=== PATIENT | female | born 1965 | race Caucasian/White ===

== ENCOUNTER 2023-03-03 11:35 | Outpatient (OUT) | payer OTHER, SELFPAY ==
--- NOTE | 2023-03-03 11:45 | MM_ITS ---
Patient: PETE FERNANDEZ Exam Date: 03/03/2023 : 1965 Gender:F Ordering : DR SAY VILLALOBOS Admission #: [id number] Family : Order #: [id number] CLICK HERE TO VIEW EXAM RADIOLOGY REPORT PROCEDURE: MM TOMOSYNTHESIS SCREENING BI COMPARISON: MG MAMM SCREEN 3D LAYLA CAD, 01/25/2021. MG MAMM SCREEN 3D LAYLA CAD, 02/04/2022. INDICATIONS: Screening mammogram Z12.31 Calculator Name NCI Breast Cancer Risk Assessment Tool 5 Year Breast Cancer Risk 1.30% Lifetime Breast Cancer Risk 8.50% Personal Breast Cancer No Personal Ovarian Cancer No Treatments None Family Cancers Brother with colon cancer at age 57; Grandfather-paternal with colon cancer at age 65; Uncle-paternal with colon cancer at age ~60; Uncle-paternal with colon cancer at age ~65. LOCATION: [facility] BREAST COMPOSITION: Scattered areas fibroglandular density. FINDINGS: DIAGNOSTIC CATEGORY 2--BENIGN FINDING. NO CHANGE FROM COMPARISON. Scattered benign-appearing calcifications are present. Scattered benign-appearing lymph nodes are present. RIGHT BREAST: No significant suspicious finding. LEFT BREAST: No significant suspicious finding. Microclip marker upper outer quandrant mid breast. RECOMMENDATIONS: ROUTINE MAMMOGRAM AND CLINICAL EVALUATION IN 12 MONTHS. PLEASE NOTE: A NORMAL MAMMOGRAM DOES NOT EXCLUDE THE POSSIBILITY OF BREAST CANCER. A CLINICALLY SUSPICIOUS PALPABLE LUMP SHOULD BE BIOPSIED. Dictated by: Nigel Lanza MD on 03/03/2023 at 13:50 Approved by: Nigel Lanza MD on 03/03/2023 at 13:53
== END 2023-03-03 11:36 | disposition home or self-care (01) ==
LOC: MAMMO 11:38
PROVIDERS: PCP Family Medicine; Visit Provider Family Medicine
DX: Z12.31 Encounter for screening mammogram for malignant neoplasm of breast (principal); Z80.0 Family history of malignant neoplasm of digestive organs
CPT/HCPCS: 77063; 77067

== ENCOUNTER 2024-03-16 09:45 | Outpatient (OUT) | payer OTHER, SELFPAY ==
--- NOTE | 2024-03-16 09:53 | MM_ITS ---
Patient Name: PETE FERNANDEZ MR#: [id number] : 1965 Exam Date: 03/16/2024 Ordering Doctor: DR SAY VILLALOBOS RADIOLOGY REPORT PROCEDURE: MM TOMOSYNTHESIS SCREENING BI COMPARISON: MM TOMOSYNTHESIS SCREENING BI, 03/03/2023. MG MAMM SCREEN 3D LAYLA CAD, 02/04/2022. MG MAMM SCREEN 3D LAYLA CAD, 01/25/2021. MAMMO POST BIOPSY LEFT, 10/19/2019. INDICATIONS: Screening Calculator Name NCI Breast Cancer Risk Assessment Tool 5 Year Breast Cancer Risk 1.40% Lifetime Breast Cancer Risk 8.30% Personal Breast Cancer No Personal Ovarian Cancer No Treatments None Family Cancers Brother with colon cancer at age 57; Grandfather-paternal with colon cancer at age 65; Uncle-paternal with colon cancer at age ~60; Uncle-paternal with colon cancer at age ~65. LOCATION: [facility] BREAST COMPOSITION: There are scattered areas of fibroglandular density. FINDINGS: DIAGNOSTIC CATEGORY 2--BENIGN FINDING: RIGHT BREAST: No significant suspicious finding. Scattered benign-appearing calcifications are present. No significant change has occurred. LEFT BREAST: No significant suspicious finding. Stable biopsy marker clip and adjacent small nodule within upper outer quadrant. Stable skin surface lesion overlying lower-inner quadrant. No significant change has occurred. RECOMMENDATIONS: ROUTINE MAMMOGRAM AND CLINICAL EVALUATION IN 12 MONTHS. PLEASE NOTE: A NORMAL MAMMOGRAM DOES NOT EXCLUDE THE POSSIBILITY OF BREAST CANCER. A CLINICALLY SUSPICIOUS PALPABLE LUMP SHOULD BE BIOPSIED. Dictated by: Ruperto Nguyen M.D. on 03/16/2024 at 17:02 Approved by: Ruperto Nguyen M.D. on 03/16/2024 at 17:05
== END 2024-03-16 09:46 | disposition home or self-care (01) ==
LOC: MAMMO 09:46
PROVIDERS: PCP Family Medicine; Visit Provider Family Medicine
DX: Z12.31 Encounter for screening mammogram for malignant neoplasm of breast (principal); Z80.0 Family history of malignant neoplasm of digestive organs
CPT/HCPCS: 77063; 77067